=== PATIENT | male | born 1975 | race Caucasian/White ===

== ENCOUNTER 2016-11-28 02:13 | Observation (INO) | payer OTHER ==
[2016-11-28] MEDS ORDERED: ONDANSETRON 4 MG/2 ML VIAL ONE ×2 (02:44→18:27)
[2016-11-28] MEDS ORDERED: NS 1,000 ML IV ONE ×2 (02:46→04:00)
[2016-11-28] MEDS ORDERED: ONDANSETRON 4 MG/2 ML VIAL IVP ONE ×2 (02:46→03:51)
[2016-11-28] MEDS ORDERED: HYDROmorphONE/DILAUDID 1 MG/ML SYR ONE ×3 (02:54→05:42)
[2016-11-28] MEDS ORDERED: HYDROmorphONE/DILAUDID 1 MG/ML SYR IVP ONE ×2 (02:55→03:11)
--- NOTE | 2016-11-28 02:56 | EDPHY ---
H & P Stated Complaint: no BM for 3 days Time Seen by Provider: 11/28/16 02:48 HPI/ROS: Chief Complaint: Epigastric pain HPI: 41-year-old male presenting with epigastric pain which began at about 9 o' clock this evening. He has had multiple episodes of vomiting associated with this. He did have similar symptoms about a week ago with these went away. He has had some constipation with some of firm stools lately has been taking a laxative for this. No blood in his stool or vomit. No fevers or chills. No chest pain or shortness of breath. Does not have a history of the same. ROS: 10 point Review of Systems is negative except as noted in the HPI. PMH: Gluten intolerance Medications: None Allergies: No known drug allergies Social History: No smoking, no alcohol, no recreational drug use Family History: non-contributory Physical Exam: Gen: Awake, Alert, No Distress HEENT: Nose: no rhinorrhea Eyes: PERRLA, EOMI Mouth: Moist mucosa Neck: Supple, no JVD Chest: nontender, lungs clear to auscultation Heart: S1, S2 normal, no murmur Abd: Soft, moderate epigastric tenderness with no right upper quadrant tenderness and no lower abdominal tenderness, no guarding Back: no CVA tenderness, no midline tenderness Ext: no edema, non-tender Skin: no rash Neuro: CN II-XII intact, Sensation grossly intact, Strength 5/5 in bilateral upper and lower extremities - Personal History Current Tetanus Diphtheria and Acellular Pertussis (TDAP): No - Medical/Surgical History Hx Asthma: No Hx Chronic Respiratory Disease: No Hx Diabetes: No Hx Cardiac Disease: No Hx Renal Disease: No Hx Cirrhosis: No Hx Alcoholism: No Hx HIV/AIDS: No Hx Splenectomy or Spleen Trauma: No Other PMH: denies - Social History Smoking Status: Never smoked Constitutional: Initial Vital Signs Temperature (C) 36.5 C 11/28/16 02:35 Heart Rate 64 11/28/16 02:35 Respiratory Rate 16 11/28/16 02:35 Blood Pressure 152/101 H 11/28/16 02:35 O2 Sat (%) 100 11/28/16 02:35 O2 Delivery Mode Room Air Allergies/Adverse Reactions: No Known Allergies Allergy (Unverified 11/28/16 02:35) Home Medications: Medication Instructions Recorded NK [No Known Home Meds] 11/28/16 Medical Decision Making - Diagnostics Imaging Results: CT stand shows a gallbladder is distended with 3 gallstones and is hydropic appearance. There is no definitive gallbladder wall thickening. There is a trace fluid around the gallbladder. There is some constipation, appendix looks normal. Imaging: Discussed imaging studies w/ will call order clerk Radiologist ED Course/Re-evaluation: 41-year-old male with epigastric abdominal pain, normal LFTs but CT scan is somewhat equivocal for acute cholecystitis. Patient is continuing to have pain is required multiple doses of Dilaudid Zofran and some Ativan. I am having a hard time getting his symptoms under control in the emergency department. I have discussed with Dr. Quiñonez, hospitalist. He will admit to his service for further evaluation arrange for a HIDA scan. - Data Points Laboratory Results: Laboratory Results 11/28/16 01:40 11/28/16 01:40 11/28/16 11/28/16 11/28/16 03:14 01:40 01:40 WBC 14.99 10^3/uL H 10^3/uL (3.80-9.50) RBC 5.32 10^6/uL 10^6/uL (4.40-6.38) Hgb 15.2 g/dL g/dL (13.7-17.5) Hct 46.3 % % (40.0-51.0) MCV 87.0 fL fL (81.5-99.8) MCH 28.6 pg pg (27.9-34.1) MCHC 32.8 g/dL g/dL (32.4-36.7) RDW 12.1 % % (11.5-15.2) Plt Count 236 10^3/uL 10^3/uL (150-400) MPV 9.7 fL fL (8.7-11.7) Neut % (Auto) 78.9 % H % (39.3-74.2) Lymph % (Auto) 13.9 % L % (15.0-45.0) [place] % (Auto) 5.7 % % (4.5-13.0) Eos % (Auto) 0.5 % L % (0.6-7.6) Baso % (Auto) 0.3 % % (0.3-1.7) Nucleat RBC Rel Count 0.0 % % (0.0-0.2) Absolute Neuts (auto) 11.80 10^3/uL H 10^3/uL (1.70-6.50) Absolute Lymphs (auto) 2.09 10^3/uL 10^3/uL (1.00-3.00) Absolute Monos (auto) 0.86 10^3/uL H 10^3/uL (0.30-0.80) Absolute Eos (auto) 0.08 10^3/uL 10^3/uL (0.03-0.40) Absolute Basos (auto) 0.05 10^3/uL 10^3/uL (0.02-0.10) Absolute Nucleated RBC 0.00 10^3/uL 10^3/uL (0-0.01) Immature Gran % 0.7 % % (0.0-1.1) Immature Gran # 0.11 10^3/uL H 10^3/uL (0.00-0.10) Sodium 143 mEq/L mEq/L (134-144) Potassium 4.3 mEq/L mEq/L (3.5-5.2) Chloride 106 mEq/L mEq/L (97-110) Carbon Dioxide 24 mEq/l mEq/l (22-31) Anion Gap 13 mEq/L mEq/L (8-16) BUN 19 mg/dL mg/dL (7-23) Creatinine 1.3 mg/dL mg/dL (0.7-1.3) Estimated GFR > 60 Glucose 126 mg/dL H mg/dL (70-100) Calcium 9.6 mg/dL mg/dL (8.5-10.4) Total Bilirubin 0.8 mg/dL mg/dL (0.1-1.4) Conjugated Bilirubin 0.5 mg/dL mg/dL (0.0-0.5) Unconjugated Bilirubin 0.3 mg/dL mg/dL (0.0-1.1) AST 19 IU/L IU/L (17-59) ALT 43 IU/L IU/L (21-72) Alkaline Phosphatase 73 IU/L IU/L (38-126) Total Protein 8.0 g/dL g/dL (6.3-8.2) Albumin 4.9 g/dL g/dL (3.5-5.0) Lipase 171.0 IU/L IU/L (23-300) Urine Color YELLOW Urine Appearance HAZY Urine pH 7.0 (5.0-7.5) Ur Specific [place] 1.020 (1.002-1.030) Urine Protein NEGATIVE (NEGATIVE) Urine Ketones TRACE H (NEGATIVE) Urine Blood NEGATIVE (NEGATIVE) Urine Nitrate NEGATIVE (NEGATIVE) Urine Bilirubin NEGATIVE (NEGATIVE) Urine Urobilinogen NEGATIVE EU EU (0.2-1.0) Ur Leukocyte Esterase NEGATIVE (NEGATIVE) Urine RBC 1-3 /hpf /hpf (0-3) Urine WBC 1-3 /hpf /hpf (0-3) Ur Epithelial Cells NONE SEEN /lpf /lpf (NONE-1+) Urine Mucus TRACE /lpf /lpf (NONE-1+) Urine Glucose NEGATIVE (NEGATIVE) Medications Given: Discontinued Medications Al Hydroxide/Mg Hydroxide (Maalox Susp) 30 ml PO ONCE ONE Stop: 11/28/16 03:15 Last Admin: 11/28/16 03:43 Dose: 30 ml Hydromorphone HCl (Dilaudid) 0.5 mg IVP EDNOW ONE Stop: 11/28/16 02:56 Last Admin: 11/28/16 02:55 Dose: 0.5 mg Hydromorphone HCl (Dilaudid) 1 mg IVP EDNOW ONE Stop: 11/28/16 03:12 Last Admin: 11/28/16 03:16 Dose: 1 mg Sodium Chloride (Ns) 1,000 mls @ 0 mls/hr IV ONCE ONE PRN Reason: Wide Open Stop: 11/28/16 02:47 Last Admin: 11/28/16 02:46 Dose: 1,000 mls Lidocaine (Lidocaine 2% Viscous) 15 ml PO ONCE ONE Stop: 11/28/16 03:15 Last Admin: 11/28/16 03:43 Dose: 15 ml Lorazepam (Ativan Injection) 1 mg IVP EDNOW ONE Stop: 11/28/16 04:48 Last Admin: 11/28/16 04:51 Dose: 1 mg Ondansetron HCl (Zofran) 4 mg IVP EDNOW ONE Stop: 11/28/16 02:47 Last Admin: 11/28/16 02:46 Dose: 4 mg Ondansetron HCl (Zofran) 4 mg IVP EDNOW ONE Stop: 11/28/16 03:52 Last Admin: 11/28/16 03:52 Dose: 4 mg Departure - Departure Disposition: [facility] Inpatient Acute Clinical Impression: Abdominal pain Condition: Fair Referrals: NONE *PRIMARY CARE P,. [Primary Care Provider] - As per Instructions
[2016-11-28 03:01] LABS: % IMMATURE GRANULYOCYTES 0.7 % (0.0-1.1); ABSOLUTE IMMATURE GRANULOCYTES 0.11 10^3/uL (0.00-0.10); ADD DIFF? NO; ADD MORPH? NO; ADD SCAN? NO; ATYPICAL LYMPHOCYTE FLAG 0 (0-99); FRAGMENT RBC FLAG 0 (0-99); HEMATOCRIT 46.3 % (40.0-51.0); HEMOGLOBIN 15.2 g/dL (13.7-17.5); LEFT SHIFT FLG 10 (0-99); LIPEMIA HEMOLYSIS FLAG 80 (0-99); MEAN CELL HEMOGLOBIN 28.6 pg (27.9-34.1); MEAN CELL HEMOGLOBIN CONCENTR. 32.8 g/dL (32.4-36.7); MEAN PLATELET VOLUME 9.7 fL (8.7-11.7); PLATELET CLUMPS FLAG 0 (0-99); PLATELET COUNT 236 10^3/uL (150-400); RED BLOOD CELL COUNT 5.32 10^6/uL (4.40-6.38); RED CELL DISTRIBUTION WIDTH 12.1 % (11.5-15.2)
[2016-11-28 03:08] LABS: ALANINE AMINOTRANSFERASE 43 IU/L (21-72); ALBUMIN 4.9 g/dL (3.5-5.0); ALKALINE PHOSPHATASE 73 IU/L (38-126); ANION GAP 13 mEq/L (8-16); ASPARTATE AMINOTRANSFERASE 19 IU/L (17-59); BILIRUBIN,TOTAL 0.8 mg/dL (0.1-1.4); BILIRUBIN-CONJUGATED 0.5 mg/dL (0.0-0.5); BILIRUBIN-UNCONJUGATED 0.3 mg/dL (0.0-1.1); CALCIUM 9.6 mg/dL (8.5-10.4); CARBON DIOXIDE 24 mEq/l (22-31); CHLORIDE 106 mEq/L (97-110); CREATININE 1.3 mg/dL (0.7-1.3); GLOMERULAR FILTRATION RATE > 60; GLUCOSE 126 mg/dL (70-100); POTASSIUM 4.3 mEq/L (3.5-5.2); SODIUM 143 mEq/L (134-144)
[2016-11-28] MEDS ORDERED: MAG HYDROX/AL HYDROX/SIMETH 30 ML UDCUP PO ONE (03:14)
[2016-11-28] MEDS ORDERED: LIDOCAINE 2% VISCOUS 15 ML UDCUP PO ONE (03:14)
[2016-11-28] MEDS ORDERED: IOPAMIDOL (ISOVUE-300) 100 ML BTL IV ONE (03:46)
[2016-11-28 04:12] LABS: COLOR YELLOW; LEUKOCYTE ESTERASE,URINE NEGATIVE (NEGATIVE); NITRITE,URINE NEGATIVE (NEGATIVE)
[2016-11-28 04:22] LABS: MUCUS TRACE /lpf (NONE-1+)
[2016-11-28] MEDS ORDERED: LORazepam 2 MG/ML INJ IVP ONE (04:47)
[2016-11-28] MEDS ORDERED: METOCLOPRAMIDE 10 MG/2 ML VIAL IVP ONE (05:30)
[2016-11-28] MEDS ORDERED: HYDROmorphONE/DILAUDID 2 MG/ML INJ IVP ONE (05:30)
[2016-11-28] MEDS ORDERED: METOCLOPRAMIDE 10 MG/2 ML VIAL ONE (05:44)
[2016-11-28] MEDS ORDERED: ONDANSETRON DISINTEGRATING 4 MG TAB PO PRN (06:15)
[2016-11-28] MEDS ORDERED: PROMETHAZINE HCL 25 MG TAB PO PRN (06:15)
[2016-11-28] MEDS ORDERED: ONDANSETRON 4 MG/2 ML VIAL IVP PRN (06:15)
[2016-11-28] MEDS ORDERED: NS 1,000 ML IV SCH (06:15)
[2016-11-28] MEDS ORDERED: ACETAMINOPHEN 325 MG TAB PO PRN (06:15)
[2016-11-28] MEDS ORDERED: HYDROmorphONE/DILAUDID 1 MG/ML SYR IVP PRN (07:29)
[2016-11-28] MEDS ORDERED: FAMOTIDINE 20 MG/NACL 50 ML IV PRN (07:30)
[2016-11-28] MEDS ORDERED: CALCIUM CARBONATE 500 MG CHEWABLE TAB PO PRN (07:30)
--- NOTE | 2016-11-28 07:36 | PDGENHP ---
History and Physical - Chief Complaint acute abdominal pain - History of Present Illness PCP: None HPI: 41-year-old male presenting with acute abdominal pain located in the mid epigastric area radiating to his back bilaterally, characterized as sharp pain with associated nausea vomiting and constipation. Onset of symptoms on the evening prior to this presentation duration was persistently worsening thereafter. Pain is somewhat alleviated by sitting upright as well as pain medications received in the ER. He reports that he has had similar symptoms of similar character but shorter duration sporadically over the past 6 months, occasionally associated with p. o. intake. Constipation has also been an issue for this patient and he reports that it is alleviated by [id number] laxatives. Denies any weight loss, denies any fever chills, denies dysuria. He denies any visible changes in his stool color. History Information - Allergies/Home Medication List Allergies/Adverse Reactions: No Known Allergies Allergy (Unverified 11/28/16 02:35) Home Medications: NK [No Known Home Meds] 11/28/16 [Last Taken Unknown] I have personally reviewed and updated: family history, medical history, social history, surgical history - Past Medical History Additional medical history: Reports gluten sensitivity - Surgical History Reports: no pertinent surgical hx - Family History Additional family history: no family history of colon cancer or any other GI malignancies - Social History Smoking Status: Never smoked Alcohol Use: None Drug Use: None Additional social history: independent in his ADLs, originally from [place], resides in [place] now Review of Systems ROS: 10pt was reviewed & negative except for what was stated in HPI & below Gastrointestinal: Reports: vomitting, abdominal pain, constipation, nausea Physical Exam Temp Pulse Resp BP Pulse Ox 36.3 C 47 L 16 132/78 H 98 11/28/16 06:32 11/28/16 06:32 11/28/16 06:32 11/28/16 06:32 11/28/16 06:32 O2 (L/minute) 2 Constitutional: no apparent distress, appears nourished, uncomfortable, No chronically ill appearing Eyes: PERRL, anicteric sclera, EOMI Ears, Nose, Mouth, Throat: hearing normal, other ( tacky mucous membranes) Cardiovascular: regular rate and rhythym, no murmur, rub, or gallop, No edema Respiratory: no respiratory distress, no rales or rhonchi, clear to auscultation Gastrointestinal: no palpable masses, tenderness ( mild to moderate palpation in the mid epigastric area as well as right upper quadrant), No normoactive bowel sounds ( hypoactive bowel sounds), No guarding, No distension Skin: other ( warm skin without any ecchymoses or erythema over the abdomen) Neurologic: AAOx3, No facial droop Psychiatric: interacting appropriately, not anxious, not encephalopathic, thought process linear Lab Data & Imaging Review 11/28/16 01:40 11/28/16 01:40 WBC 14.99 10^3/uL (3.80-9.50) H 11/28/16 01:40 RBC 5.32 10^6/uL (4.40-6.38) 11/28/16 01:40 Hgb 15.2 g/dL (13.7-17.5) 11/28/16 01:40 Hct 46.3 % (40.0-51.0) 11/28/16 01:40 MCV 87.0 fL (81.5-99.8) 11/28/16 01:40 MCH 28.6 pg (27.9-34.1) 11/28/16 01:40 MCHC 32.8 g/dL (32.4-36.7) 11/28/16 01:40 RDW 12.1 % (11.5-15.2) 11/28/16 01:40 Plt Count 236 10^3/uL (150-400) 11/28/16 01:40 MPV 9.7 fL (8.7-11.7) 11/28/16 01:40 Neut % (Auto) 78.9 % (39.3-74.2) H 11/28/16 01:40 Lymph % (Auto) 13.9 % (15.0-45.0) L 11/28/16 01:40 [place] % (Auto) 5.7 % (4.5-13.0) 11/28/16 01:40 Eos % (Auto) 0.5 % (0.6-7.6) L 11/28/16 01:40 Baso % (Auto) 0.3 % (0.3-1.7) 11/28/16 01:40 Nucleat RBC Rel Count 0.0 % (0.0-0.2) 11/28/16 01:40 Absolute Neuts (auto) 11.80 10^3/uL (1.70-6.50) H 11/28/16 01:40 Absolute Lymphs (auto) 2.09 10^3/uL (1.00-3.00) 11/28/16 01:40 Absolute Monos (auto) 0.86 10^3/uL (0.30-0.80) H 11/28/16 01:40 Absolute Eos (auto) 0.08 10^3/uL (0.03-0.40) 11/28/16 01:40 Absolute Basos (auto) 0.05 10^3/uL (0.02-0.10) 11/28/16 01:40 Absolute Nucleated RBC 0.00 10^3/uL (0-0.01) 11/28/16 01:40 Immature Gran % 0.7 % (0.0-1.1) 11/28/16 01:40 Immature Gran # 0.11 10^3/uL (0.00-0.10) H 11/28/16 01:40 Sodium 143 mEq/L (134-144) 11/28/16 01:40 Potassium 4.3 mEq/L (3.5-5.2) 11/28/16 01:40 Chloride 106 mEq/L (97-110) 11/28/16 01:40 Carbon Dioxide 24 mEq/l (22-31) 11/28/16 01:40 Anion Gap 13 mEq/L (8-16) 11/28/16 01:40 BUN 19 mg/dL (7-23) 11/28/16 01:40 Creatinine 1.3 mg/dL (0.7-1.3) 11/28/16 01:40 Estimated GFR > 60 11/28/16 01:40 Glucose 126 mg/dL (70-100) H 11/28/16 01:40 Calcium 9.6 mg/dL (8.5-10.4) 11/28/16 01:40 Total Bilirubin 0.8 mg/dL (0.1-1.4) 11/28/16 01:40 Conjugated Bilirubin 0.5 mg/dL (0.0-0.5) 11/28/16 01:40 Unconjugated Bilirubin 0.3 mg/dL (0.0-1.1) 11/28/16 01:40 AST 19 IU/L (17-59) 11/28/16 01:40 ALT 43 IU/L (21-72) 11/28/16 01:40 Alkaline Phosphatase 73 IU/L (38-126) 11/28/16 01:40 Total Protein 8.0 g/dL (6.3-8.2) 11/28/16 01:40 Albumin 4.9 g/dL (3.5-5.0) 11/28/16 01:40 Lipase 171.0 IU/L (23-300) 11/28/16 01:40 Urine Color YELLOW 11/28/16 03:14 Urine Appearance HAZY 11/28/16 03:14 Urine pH 7.0 (5.0-7.5) 11/28/16 03:14 Ur Specific [place] 1.020 (1.002-1.030) 11/28/16 03:14 Urine Protein NEGATIVE (NEGATIVE) 11/28/16 03:14 Urine Ketones TRACE (NEGATIVE) H 11/28/16 03:14 Urine Blood NEGATIVE (NEGATIVE) 11/28/16 03:14 Urine Nitrate NEGATIVE (NEGATIVE) 11/28/16 03:14 Urine Bilirubin NEGATIVE (NEGATIVE) 11/28/16 03:14 Urine Urobilinogen NEGATIVE EU (0.2-1.0) 11/28/16 03:14 Ur Leukocyte Esterase NEGATIVE (NEGATIVE) 11/28/16 03:14 Urine RBC 1-3 /hpf (0-3) 11/28/16 03:14 Urine WBC 1-3 /hpf (0-3) 11/28/16 03:14 Ur Epithelial Cells NONE SEEN /lpf (NONE-1+) 11/28/16 03:14 Urine Mucus TRACE /lpf (NONE-1+) 11/28/16 03:14 Urine Glucose NEGATIVE (NEGATIVE) 11/28/16 03:14 Visualized and Interpreted imaging results: Yes Interpretation: constipation, gallstones Assessment & Plan Assessment: 41-year-old male presents with acute abdominal pain in the setting of cholelithiasis Plan: 1. Abdominal pain. Acute, new from this provider, further workup indicated. Potential etiologies include cholecystitis versus constipation from gastroparesis versus peptic ulcer disease. - believe the most likely etiology is either cholecystitis versus gastroparesis , based on abdominal CT demonstrating gallstones and hydrops as well as fecalization of the small bowel indicating slow transit - HIDA scan - if HIDA scan negative, consider small-bowel follow-through - NPO until HIDA scan, clear liquid diet thereafter - continue supportive IV fluids - IV antiemetics and pain medications supportively until etiologies uncovered - empirically give IV PPI as well as as needed H2 dylan and times given nausea and vomiting - patient does not require an upper endoscopy at this time but if all the above workup is unremarkable, would consider GI consult and EGD at that time Diet. NPO then clears Prophylaxis. Low risk patient, SCDs Code. Full Disposition. Anticipated discharge is 11/29, pending further workup as outlined above. I have discussed patient's presentation with Dr. Hieu Hinton in the emergency department, we both agree that patient warrants observation and further workup as outlined above.
[2016-11-28] MEDS ORDERED: PANTOPRAZOLE SODIUM 40 MG in NS 100 ML IV SCH (09:00)
[2016-11-28] MEDS ORDERED: PROPOFOL 200 MG/20 ML VIAL ONE (17:12)
[2016-11-28] MEDS ORDERED: ROCURONIUM 50 MG/5 ML VIAL ONE (17:13)
[2016-11-28] MEDS ORDERED: BUPIVACAINE 0.5% 30 ML SDV ONE (17:14)
[2016-11-28] MEDS ORDERED: LIDOCAINE 1% 30 ML SDV ONE (17:14)
[2016-11-28] MEDS ORDERED: fentaNYL 250 MCG/5 ML INJ ONE (17:14)
[2016-11-28] MEDS ORDERED: POLYETHYLENE GLYCOL 3350 17 GM PKT PO PRN (17:21)
[2016-11-28] MEDS ORDERED: BISACODYL 10 MG SUPP PR PRN (17:21)
[2016-11-28] MEDS ORDERED: MAGNESIUM HYDROXIDE 30 ML UDCUP PO PRN (17:21)
[2016-11-28] MEDS ORDERED: LACTULOSE 20 GM/30 ML UDCUP PO PRN (17:21)
--- NOTE | 2016-11-28 17:22 | HOSPPROG ---
Hospitalist Progress Note Assessment/Plan: * Acute cholecystitis -d/w Dr. Beasley - needs lap jolanta -LFT normal - no need for ERCP * Constipation -bowel protocol Subjective: No new complaints. Objective: Vital Signs Temp Pulse Resp BP Pulse Ox 36.9 C 61 16 119/72 98 11/28/16 16:00 11/28/16 16:00 11/28/16 16:00 11/28/16 16:00 11/28/16 16:00 11/27/16 11/28/16 11/29/16 05:59 05:59 05:59 Intake Total 1999 Balance [address] Guzman radiology - non visualization of GB c/w Acute jolanta CT abd/pelvis - Gallbladder suspicious, + constipation Laboratory Tests 11/28/16 11/28/16 01:40 01:40 WBC 14.99 H Hct 46.3 Plt Count 236 Total Bilirubin 0.8 Conjugated Bilirubin 0.5 Unconjugated Bilirubin 0.3 AST 19 ALT 43 Alkaline Phosphatase 73 Albumin 4.9 Patient is new to md, 1st visit - Physical Exam Constitutional: no apparent distress, appears nourished, not in pain Cardiovascular: regular rate and rhythym, no murmur, rub, or gallop Respiratory: no respiratory distress, no rales or rhonchi, clear to auscultation Gastrointestinal: normoactive bowel sounds, soft, non-tender abdomen, no palpable masses Skin: no rashes or abrasions, no fluctuance, no induration Neurologic: AAOx3, sensation intact bilaterally Psychiatric: interacting appropriately, not anxious, not encephalopathic, thought process linear ICD10 Worksheet Patient Problems: Problems Problem Status Onset Abdominal pain Acute
[2016-11-28] MEDS ORDERED: MIDAZOLAM 2 MG/2 ML VIAL ONE (17:28)
[2016-11-28] MEDS ORDERED: DEXAMETHASONE 4 MG/ML VIAL ONE ×2 (18:26→18:27)
[2016-11-28] MEDS ORDERED: SUGAMMADEX SODIUM 200 MG/2 ML VIAL IVP ONE (18:35)
[2016-11-28] MEDS ORDERED: oxyCODONE IR 5 MG TAB PO PRN (19:08)
--- NOTE | 2016-11-28 19:10 | POSTOPPROG ---
Post Op Note Date of Operation: 11/28/16 Surgeon: Juan Beasley Simulation Tech: none Anesthesiologist: Breezy Anesthesia: GET(General Endotracheal) Pre-op Diagnosis: acute cholecystitis Post-op Diagnosis: same Procedure: Lap Elvie Findings: Acute inflammation mulberry stones Inf/Abcess present in the surg proc area at time of surgery?: Yes Depth: Organ Space EBL: Minimal Complications: none Specimen(s): gallbladder
[2016-11-28] MEDS: SENNOSIDES/DOCUSATE SODIUM TAB PO SCH (19:55)
--- NOTE | 2016-11-28 23:04 | GCON ---
[f rep st] CONSULTATION DATE OF CONSULTATION: 11/28/2016 REFERRING PHYSICIAN: Diana Dickens MD TIME SEEN: 1700. REASON FOR CONSULTATION: The patient was seen at the request of Dr. Diana Dickens for acute cholec ystitis. HISTORY OF PRESENT ILLNESS: The patient had been admitted the day before with acute abdominal pain of unknown origin. CT scan of the abdomen and pelvis, as well as hepatobiliary scan, were identifie d, and the patient had hydropic gallbladder with cholelithiasis, and trace pericholecystic fluid. T he nuclear medicine scan demonstrated nonfilling of the gallbladder consistent with acute cholecysti tis after 60 minutes. The patient was deemed to have acute cholecystitis. PAST MEDICAL HISTORY: Not significant for other medical problems. ALLERGIES: The patient has no known drug allergies. MEDICATIONS: Takes no home medications. FAMILY HISTORY: Noncontributory for GI malignancies or other issues. SOCIAL HISTORY: The patient denies alcohol, smoking or drug use. REVIEW OF SYSTEMS: Except for abdominal pain, is completely negative. LABORATORY DATA: Initial laboratory studies show a white blood cell count of 15,000, hemoglobin of 15.2, hematocrit of 46.3, with a platelet count of 236, with a left shift. Chemistry show an elevat ion of his glucose to 126, all others are reviewed and are normal, including alkaline phosphatase, A ST and ALT. PHYSICAL EXAMINATION: VITAL SIGNS: The patient has a temperature of 36.8, heart rate of 60, blood pressure of 124/80, saturating 97% on room air. LUNGS: Clear. HEART: Regular heart tones. HEENT : Sclerae are anicteric. Oropharynx is moist. NECK: Trachea is midline. No JVD, thyromegaly, or supraclavicular adenopathy. ABDOMEN: Tender in the right upper quadrant without a Rios sign. Denisse tabares has no scars on his abdomen. No splenomegaly. No palpable hernias. EXTREMITIES: Without edema. 2+/2+ femoral pulses, dorsalis pedis pulses, and radial pulses. BACK: No CVA tenderness. IMPRESSION: Overall, is that of a 41-year-old gentleman with acute cholecystitis, based on laborato ry studies and clinical examination, as well as imaging studies. PLAN: Will be laparoscopic cholecystectomy. Risks, benefits, and alternatives including the risk o f retained stone, need for ERCP, biliary injury, and a leak were all discussed, and verbal confirmat ion of understanding. He needs the surgery at the earliest opportunity. /[id number]/MODL
[2016-11-28] MEDS: KETOROLAC 15 MG/1 ML SDV IVP SCH (23:38)
--- NOTE | 2016-11-29 03:08 | GOP ---
[f rep st] OPERATIVE REPORT DATE OF OPERATION: SURGEON: Juan Beasley MD ANESTHESIA: General. ANESTHESIOLOGIST: Harry Tijerina DO PREOPERATIVE DIAGNOSIS: Acute cholecystitis. POSTOPERATIVE DIAGNOSIS: Acute cholecystitis. PROCEDURE PERFORMED: Laparoscopic cholecystectomy. FINDINGS: SPECIMENS: Gallbladder, to permanent pathology. ESTIMATED BLOOD LOSS: Less than 50 mL. INDICATIONS: This is a 41-year-old gentleman who presents to the hospital with acute abdominal pain . HIDA scan showed acute cholecystitis. DESCRIPTION OF PROCEDURE: Patient was brought to the operating room after induction of endotracheal anesthesia, in supine position. Time-out was then performed according to the institutional standar ds. Local anesthetic was infused into the skin and subcutaneous tissue at the trocar sites. Open s upraumbilical trocar placement was done and the abdomen was insufflated to 15 TOR with carbon dioxid e. Working trocars were placed in the subxiphoid and right subcostal areas under direct visualizati on. The patient was placed in left side tilt down and reverse Trendelenburg to facilitate the surge ry. The gallbladder was encased by omental fat with acute inflammation that is noted. This was dissecte d with electrocautery and blunt dissection. The cystic duct and cystic artery were identified in th e triangle of Calot with a very large, acutely inflamed lymph node. The cystic duct and cystic farzaneh ry were triply clipped and ligated. The gallbladder was taken off a somewhat intrahepatic gallbladd er position using electrocautery. The gallbladder was placed into an Endopouch and brought out the umbilical incision. The abdomen was irrigated and aspirated until clear. There were no immediate c omplications. The needle, instrument and sponge counts assured to be correct. The abdomen was exit ed and all working trocars were removed under direct visualization. The fascia was closed using 0 V icryl and all 4 ports were reapproximated at the skin level using 4-0 Monocryl. Dressing applied. The patient was placed flat, extubated, and taken to the recovery room in stable condition. Needle, instrument and sponge were assured to be correct x2.. SURGEON: Juan Beasley MD. COMPLICATIONS: There were no complications. /[id number]/MODL
[2016-11-29 05:35] LABS: % IMMATURE GRANULYOCYTES 0.6 % (0.0-1.1); ABSOLUTE IMMATURE GRANULOCYTES 0.09 10^3/uL (0.00-0.10); ADD DIFF? NO; ADD MORPH? NO; ADD SCAN? NO; ATYPICAL LYMPHOCYTE FLAG 0 (0-99); FRAGMENT RBC FLAG 0 (0-99); HEMATOCRIT 39.8 % (40.0-51.0); HEMOGLOBIN 13.4 g/dL (13.7-17.5); LEFT SHIFT FLG 10 (0-99); LIPEMIA HEMOLYSIS FLAG 80 (0-99); MEAN CELL HEMOGLOBIN 28.8 pg (27.9-34.1); MEAN CELL HEMOGLOBIN CONCENTR. 33.7 g/dL (32.4-36.7); MEAN CELL VOLUME 85.6 fL (81.5-99.8); PLATELET CLUMPS FLAG 20 (0-99); PLATELET COUNT 189 10^3/uL (150-400); RED BLOOD CELL COUNT 4.65 10^6/uL (4.40-6.38); RED CELL DISTRIBUTION WIDTH 12.4 % (11.5-15.2)
[2016-11-29] MEDS: KETOROLAC 15 MG/1 ML SDV IVP SCH ×2 (05:36→11:11)
[2016-11-29 06:15] LABS: ANION GAP 8 mEq/L (8-16); CALCIUM 8.9 mg/dL (8.5-10.4); CARBON DIOXIDE 24 mEq/l (22-31); CHLORIDE 108 mEq/L (97-110); CREATININE 0.9 mg/dL (0.7-1.3); GLOMERULAR FILTRATION RATE > 60; GLUCOSE 130 mg/dL (70-100); POTASSIUM 4.4 mEq/L (3.5-5.2); SODIUM 140 mEq/L (134-144)
[2016-11-29] MEDS: SENNOSIDES/DOCUSATE SODIUM TAB PO SCH (08:06)
[2016-11-29 09:03] VITALS: BP 119/74; PULSE 69; RESP 18; TEMP 98.6; O2SAT 95
[2016-11-29 09:43] LABS: ALBUMIN 3.5 g/dL (3.5-5.0); BILIRUBIN,TOTAL 0.9 mg/dL (0.1-1.4); BILIRUBIN-CONJUGATED 0.4 mg/dL (0.0-0.5); BILIRUBIN-UNCONJUGATED 0.5 mg/dL (0.0-1.1); TOTAL PROTEIN 5.9 g/dL (6.3-8.2)
--- NOTE | 2016-11-29 18:01 | GDS ---
[f rep st] DISCHARGE SUMMARY DISCHARGE DIAGNOSES: 1. Acute cholecystitis, status post laparoscopic cholecystectomy. 2. Constipation. 3. Gluten sensitivity. HISTORY: The patient is a 41-year-old male who has had multiple GI complaints over the last year. He has been self-treating at home for constipation with MiraLAX. He also has recognized a severe gl uten sensitivity, and follows a gluten-free diet. He has never seen Gastroenterology. He eventuall y presented to the emergency room with severe epigastric pain, with nausea and vomiting. A CT scan showed a concerning gallbladder, and a followup HIDA scan confirmed that he did indeed have an acute cholecystitis. Dr. Beasley was consulted from General Surgery, and brought him for laparoscopic ch olecystectomy. He found an extremely inflamed gallbladder that was clearly a problem for some time, likely accounting for a large percentage of his recent GI symptoms. Postoperatively, he feels grea t, and is doing much better, and anxious to discharge home. In seeking evaluation for this abdominal pain, he did schedule a Gastroenterology appointment 2 week s ago, and that appointment is tomorrow. He does have additional concerns he hopes to speak with [facility] cigar patcher about, including his ongoing issues with constipation, and perhaps a definitive diagnosis for this gluten intolerance, as there is suspicion he may truly have celiac disease. Inci dentally noted on the CAT scan was also a small hiatal hernia, and he was counseled regarding the fa ct that it is unlikely that is contributing to his issues. Now that his gallbladder is removed, we can see to what degree he may have ongoing GI symptoms moving forward. DISCHARGE MEDICATIONS: Please see computer record for full detailed list. New medications: None. He requests Tylenol only for pain control post surgery. ADDITIONAL DISCHARGE INSTRUCTIONS: 1. Follow up with Dr. Beasley, General Surgery, in 2 weeks. 2. Follow up with Gastroenterology tomorrow, as previously scheduled. Patient was seen and examined by me on the day of discharge. /[id number]/MODL
== END 2016-11-29 12:19 | disposition home or self-care (01) ==
LOC: F3E 06:25
PROVIDERS: ADMIT Internal Medicine; ATTEND Internal Medicine
PROC: 0FT44ZZ Resection of Gallbladder, Percutaneous Endoscopic Approach (ICD-10-PCS; principal; 2016-11-28 17:00)
DX: K80.00 Calculus of gallbladder with acute cholecystitis without obstruction (principal)
CPT/HCPCS: 47562; 74177; 78227; A9537; G0378; 96374; J1100; J1170; J1200; J1885; J2060; J2250; J2405; J2704; J2765; J3010; Q9967